=== PATIENT | female | born 2000 ===

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

== ENCOUNTER 2022-01-27 12:08 | Outpatient (REF) | payer OTHER, SELFPAY ==
[2022-01-28 10:26] LABS: BV Int Neg Control Negative (Negative); BV Int Pos Control Positive (Positive)
== END 2022-01-27 12:09 | disposition home or self-care (01) ==
LOC: HO.LNP 12:08
PROVIDERS: Visit Provider Advanced Practice Midwife
DX: R10.2 Pelvic and perineal pain (principal); N76.0 Acute vaginitis
CPT/HCPCS: 87480; 87510; 87660; 99212

== ENCOUNTER → 2022-02-22 10:56 | Outpatient (BNVA) | payer OTHER, SELFPAY | PROVIDERS: PCP Pediatrics; Visit Provider Advanced Practice Midwife | DX: Z30.42 Encounter for surveillance of injectable contraceptive (principal) | CPT/HCPCS: 96372; 99211 ==

== ENCOUNTER 2022-05-06 11:33 | Outpatient (REF) | payer OTHER, SELFPAY ==
[2022-05-07 11:04] LABS: CT PCR NOT DETECTED (Not Detect.); NG PCR NOT DETECTED (Not Detect.)
[2022-05-07 11:23] LABS: BV Int Neg Control Negative (Negative); BV Int Pos Control Positive (Positive)
== END 2022-05-06 11:34 | disposition home or self-care (01) ==
LOC: HO.LNP 11:33
PROVIDERS: PCP Hospitalist; Visit Provider Advanced Practice Midwife
DX: Z11.3 Encounter for screening for infections with a predominantly sexual mode of transmission (principal); N89.8 Other specified noninflammatory disorders of vagina
CPT/HCPCS: 0353U; 87480; 87510; 87660

== ENCOUNTER → 2022-05-16 12:50 | Outpatient (BNVA) | payer OTHER, SELFPAY | PROVIDERS: PCP Hospitalist; Visit Provider Advanced Practice Midwife | DX: Z30.42 Encounter for surveillance of injectable contraceptive (principal) | CPT/HCPCS: 96372; 99211 ==

== ENCOUNTER → 2022-08-15 13:46 | Outpatient (BNVA) | payer OTHER, SELFPAY | PROVIDERS: PCP Hospitalist; Visit Provider Advanced Practice Midwife | DX: Z30.42 Encounter for surveillance of injectable contraceptive (principal) | CPT/HCPCS: 96372; 99211 ==

== ENCOUNTER 2022-11-03 10:55 | Outpatient (AMB) | payer OTHER, SELFPAY ==
[2022-11-03 11:25] VITALS: BMI 24.1
--- NOTE | 2022-11-03 11:25 | AM.OFFVISNUR ---
Intake Vital Signs 11/03/22 11:25 Height 5 ft 3 in Weight 61.745 kg BMI 24.1 Intake Visit Reasons: DEPO Allergies amoxicillin Allergy (Unknown, Uncoded 05/06/22 11:52) hives Nursing Note Alessandra is here today for her scheduled Depo-Provera inj. She gets spotting when her next Depo-Provera shot is due. Return in 12 wks for next inj. Office Procedures Depo Questionnaire If YES to any of the following questions, please consult a provider. Date of last injection: 08/15/22 Date of last menstrual period: 10/24/22 Date of last gynecology exam: 05/06/22 Menstrual pattern since last injection has been: Light Irregular bleeding?: No Breast lumps or other breast changes?: No Changes in weight or appetite?: No Depression or changes in mood?: No Abnormal hair growth or loss?: No Skin problems (rash, acne, discoloration)?: No Pain at the injection site?: No Headaches?: No Nervousness?: No Abdominal pain or cramping?: No Dizziness or nausea?: No Fatigue or weakness?: No Decrease in sexual drive?: No Chest pain or shortness of breath?: No Swelling in arms or legs?: No Form completed by?: Bari catalan LPN Office Meds Depo-Provera Performing Provider: Kiara Rosado CNM Administered by: Liat Catalan LPN on 11/03/22 11:26 Dose Route Admin Location Lot Number Expiration Date NDC Cad Detailer 150 mg IM left deltoid [id number] 01/21/25 80663-668-75 [facility] Coding Level of Care Code Established Pt Est Pt Level 1 (84610) Patient Type Established History Problem Focused Exam Problem Focused Medical Decision Making Straight Forward Diagnoses Time Spent (min) 15 Assessment & Plan Assessment & Plan Orders: Orders AMB Medroxyprogesterone Injection Patient Supplied Today Z30.42 - Encounter for surveillance of injectable contraceptive
== END 2022-11-03 13:59 | disposition home or self-care (01) ==
LOC: HO.HWS 10:55
PROVIDERS: PCP Hospitalist; Visit Provider Advanced Practice Midwife
DX: Z30.42 Encounter for surveillance of injectable contraceptive (principal)
CPT/HCPCS: J1050

== ENCOUNTER → 2022-11-03 10:55 | Outpatient (BNVA) | payer OTHER, SELFPAY | PROVIDERS: PCP Hospitalist; Visit Provider Advanced Practice Midwife | DX: Z30.42 Encounter for surveillance of injectable contraceptive (principal) | CPT/HCPCS: 96372; 99211 ==

== ENCOUNTER 2022-11-23 12:53 | Outpatient (AMB) | payer OTHER, SELFPAY ==
--- NOTE | 2022-11-23 12:54 | A.OFFPC_ITS ---
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 Development Consultant Required: No Accompanied by: Self / Same As Patient Allergies amoxicillin Allergy (Unknown, Uncoded 11/23/22 13:25) hives Medication List - Last Reconciled 11/23/22 by Ashley Leal CNP albuterol sulfate 90 mcg/actuation 2 puffs inhalation Q4-6H PRN cetirizine (All Day Allergy (cetirizine)) 10 mg PO DAILY fluticasone propionate 50 mcg/actuation (Flonase Allergy Relief) 1 spray intranasal DAILY PRN ibuprofen 600 mg PO Q8H PRN medroxyprogesterone (Depo-Provera) 150 mg IM Q12W polyethylene glycol 3350 (Miralax) 17 grams PO DAILY Tobacco use date assessed: 11/23/22 Dental Screening Dental Screen Date: 11/23/22 Did you have a dental visit in the last 12 months?: Yes Did you have a dental problem in the last 6 months where you did not have access to dental care?: No Was dental information given to patient?: Patient has dentist HPI HPI Comments History of Present Illness Details 22-year-old female presents to [facility]. She notes the last time she was evaluated by a PCP and had blood work was a year ago. She reports h/o exercise induced asthma She notes that she gets anxious but not depressed. She has never been formally been diagnosed with anxiety or depression. No acute symptoms today. [facility] Medical History Allergic rhinitis Asthma, mild intermittent History of migraine headaches Family History Mother No problems noted. 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 1. Little interest or pleasure in doing things: nearly every day 2. Feeling down, depressed, or hopeless: not at all 3. Trouble falling or staying asleep, or sleeping too much: nearly every day 4. Feeling tired or having little energy: not at all 5. Poor appetite or overeating: nearly every day 6. Feeling bad about yourself - or that you are a failure or have let yourself or your family down: not at all 7. Trouble concentrating on things, such as reading the newspaper or watching television: not at all 8. Moving or speaking so slowly that other people could have noticed. Or the opposite - being so fidgety or restless that you have been moving around a lot more than usual: nearly every day 9. Thoughts that you would be better off or of hurting yourself in some way: not at all Total score: 12 Depression Screening Interpretation: Positive Depression Screening Follow-up: Existing condition and New Medication prescribed 34343 - PHQ-9 Billing: Yes Source: Developed by Drs. Martin Vu, Renae Mc, Cesar Yang and colleagues, with an educational miriam from [email or web address]. Thrive Questionnaire Date Thrive assessed: 11/23/22 I am a: Patient What is your living situation today?: I have a steady place to live Within the past 12 months, did the food you bought not last and you didn't have the money to get more?: Never true Within the past 12 months, did you worry whether your food would run out before you got money to buy more?: Never true Do you have trouble paying for medicines?: No Do you have trouble getting transportation to medical appointments?: No Do you have trouble paying your heating and electricity bill?: No Do you have trouble taking care of your child, family member or friend?: No Do you have trouble with day-to-day activities such as bathing, preparing meals, shopping, managing finances, etc.?: No Are you currently unemployed and looking for a job?: No Are you interested in more education?: No Please select the resources that you would like help with: None Currently or been in a relationship where the following occur: no concerns reported AUDIT C Alcohol Use Questionnaire (AUDIT-C) 1. How often do you have a drink containing alcohol?: Monthly or less 2. How many drinks containing alcohol do you have on a typical day when you are drinking?: 1 or 2 3. How often do you have six or more drinks on one occasion?: Less than monthly Total Score: 2 IVONNE-7 AMB Questionnaire IVONNE-7 Date IVONNE - 7 assessed: 11/23/22 Feeling nervous, anxious, or on edge: 0 = Not at all Not being able to stop or control worryin = Not at all Worrying too much about different things: 0 = Not at all Trouble relaxin = Not at all Being so restless that it is hard to sit still: 3 = Nearly every day Becoming easily annoyed or irritable: 3 = Nearly every day Feeling afraid as if something awful might happen: 0 = Not at all Total IVONNE-7 score (0-4 normal; 5-9 mild; 10-14 moderate; 15-21 severe): 6 Source: Developed by Drs. Martin Vu, Renae Mc, Cesar Yang and colleagues, with an educational miriam from [employer]. IVONNE-7 Assessment Billing IVONNE-7 Assessment Tool: IVONNE-7 Assessment 59186 ACT Questionnaire In the past 4 weeks, how much of the time did your asthma keep you from getting as much done at work, school or at home?: Some of the time During the past 4 weeks, how often have you had shortness of breath?: More than once a day During the past 4 weeks, how often did your asthma symptoms wake you up at night or earlier than usual in the morning?: Once or twice per week During the past 4 weeks, how often have you had to use your rescue inhaler or ne bulizer medication?: 1-2 times a week How would you rate your asthma control during the past 4 weeks?: Somewhat controlled Score: 13 Review of Systems Const Details: Const Denies chills, Denies fatigue, Denies fever(s), Denies headache(s) and Denies weakness ENT Denies dizziness and Denies headache(s) Card Denies chest pain, Denies lightheadedness, Denies dyspnea and Denies other (Palpitations) Resp Denies cough, Denies dyspnea, Denies wheezing and Denies other ( shortness of breath) GI Denies abdominal pain, Denies melena, Denies hematochezia, Denies change in bowel habits, Denies dyspepsia and Denies nausea Denies hematuria and Denies dysuria Musc Denies abnormal gait, Denies myalgias, Denies arthralgias, Denies numbness and Denies tingling Skin/Breast Denies rash, Denies unusual bruising and Denies wounds Neuro Denies abnormal gait, Denies dizziness, Denies headache(s), Denies memory loss, Denies numbness, Denies Sensory deficit (Neuro), Denies tingling and Denies weakness Psych Reports anxiety and Reports depression, Denies memory loss Endo Denies fatigue Aller/Immun Denies wheezing Physical exam (Primary Care) Vital Signs: Last Vital Signs Pulse 73 11/23/22 12:56 BP 110/70 11/23/22 12:56 Pulse Ox 99 11/23/22 12:56 BMI result Body Mass Index 24.1 Tobacco/Smoking Status: Tobacco use Status Tobacco use date assessed 11/23/22 11/23/22 12:56 Patient Tobacco Use Status Never used Tobacco 11/23/22 13:05 e-Cigarette/Vaping Use Never Used 11/23/22 13:05 PHQ-9: PHQ-9 Score PHQ-9: Total score 12 11/23/22 13:34 Depression Screening Interpretation: Positive Depression Screening Follow-up: Existing condition and New Medication prescribed Thrive Assessment: Date of Thrive Assessment Date Thrive assessed 11/23/22 11/23/22 13:05 Currently or been in a relationship where the following occur: no concerns reported Const Other: General: no acute distress and well developed Nutritional Appearance: well nourished Orientation/consciousness: patient oriented x3 HENMT Head: Yes normocephalic and Yes atraumatic Eyes General: appearance normal, both eyes and all related structures Pupils: Equal, round and reactive pupils present EOM: EOMs intact bilaterally Resp Effort & Inspection: normal respiratory effort Auscultation: clear to auscultation bilaterally Cardio Rate: regular rate Rhythm: regular rhythm Heart sounds: S1 normal heart sound present, S2 normal heart sound present, no gallops, no murmurs and no rubs GI Palpation (GI): No Abdominal aortic bruit present, Soft to palpation, nontender, No hepatosplenomegaly present and No Rebound tenderness present Auscultation: normal bowel sounds General: Yes no CVA tenderness Back/Spine/Pelvis Back: no CVA tenderness Cervical Spine: cervical ROM normal and No Cervical spine tenderness Thoracic/Lumbar Spine: thoraco-lumbar ROM normal, No pain with thoraco-lumbar ROM, No thoracic spinal tenderness and No lumbar spinal tenderness Extrem General: Yes normal to inspection, No edema and No calf tenderness Skin General: warm and dry. Normal skin color. Normal skin turgor Lesions: no lesions Rashes: no rashes Trauma: no lacerations or abrasions Wounds: no wounds Nails: normal Neuro General: patient oriented x3, gait normal and CN's II-XI intact bilaterally Cranial nerves: Yes Equal, round and reactive pupils present Cognition (Neuro): normal cognition Gait exam (Neuro): Normal gait present Motor exam (neuro): 5/5 motor strength present throughout Sensory Exam: No Sensory deficit (Neuro) Psych Appearance: grossly normal Affect: normal affect Attitude: cooperative Thought process: Normal thought process present Assessment and Plan Assessment & Plan (1) Anxiety and depression: Code(s): F41.9 - Anxiety disorder, unspecified; F32.A - Depression, unspecified Plan: PHQ-9 and IVONNE-7 scores revealed moderate depression and mild anxiety respectively Sertraline ordered. Take as prescribed Routine exercise encouraged Follow-up in 1 month or return sooner with worsening or new symptoms Verbalized understanding and agreed with treatment plan. (2) Laboratory tests ordered as part of a complete physical exam (CPE): Code(s): Z00.00 - Encounter for general adult medical examination without abnormal findings Plan: Fasting labs ordered as part of a complete physical exam. Advised to fast for at least 10 hours before getting labs drawn. May drink water Verbalized understanding and agreed with treatment plan. Orders: Orders Comprehensive Malcolm. Panel Fast Today Z00.00 - Encounter for general adult medical examination without abnormal findings Lipid Panel Today Z00.00 - Encounter for general adult medical examination without abnormal findings TSH reflex Free T4 Today Z00.00 - Encounter for general adult medical examination without abnormal findings Complete Blood Count Auto Diff Today Z00.00 - Encounter for general adult medical examination without abnormal findings UA CC w/rflx Micro + Cult Today Z00.00 - Encounter for general adult medical examination without abnormal findings Medications: New sertraline 25 mg PO DAILY 30 days 30 tabs 3RF Coding Level of Care Code New Pt Level 3 (42868) Diagnoses Anxiety and depression F41.9; F32.A Laboratory tests ordered as part of a complete physical exam (CPE) Z00.00 Additional Codes IVONNE-7 Assessment Billing - IVONNE-7 Assessment Tool: IVONNE-7 Assessment 85808 ([id number])
[2022-11-23 12:56] VITALS: BP 110/70; PULSE 73; O2SAT 99; BMI 24.1
== END 2022-11-23 13:46 | disposition home or self-care (01) ==
PROVIDERS: PCP Hospitalist; Visit Provider Nurse Practitioner Family
DX: Z00.00 Encounter for general adult medical examination without abnormal findings (principal); F41.9 Anxiety disorder, unspecified; F32.A Depression, unspecified
CPT/HCPCS: 96127; 99385

== ENCOUNTER 2023-01-05 10:26 | Outpatient (REF) | payer OTHER, SELFPAY ==
[2023-01-05 10:44] LABS: MANUAL DIFF FLAG NO
[2023-01-05 11:26] LABS: Basophils Percent Auto 0.3 % (0-2); Eosinophils Percent Auto 0.2 % (0-4); Hematocrit 44.4 % (37.0-47.0); Hemoglobin 14.5 g/dl (12.0-16.0); Lymphocytes Absolute Auto 1.8 X10*3/uL (1.2-4.9); Lymphocytes Percent Auto 18.3 % (20-40); Mean Corpuscular HGB Conc 32.7 g/dl (31.0-35.0); Mean Corpuscular Hemoglobin 28.8 pg (27.0-33.0); Mean Corpuscular Volume 88.1 fL (80.0-98.0); Mean Platelet Volume 11.7 fL (9.4-12.3); Monocytes Percent Auto 9.9 % (2-11); Neutrophils Absolute Auto 6.7 x10*3/uL (2.0-8.3); Neutrophils Percent Auto 70.3 % (45-73); Platelet Count 204 X10*3/uL (160-400); Red Blood Count 5.04 X10*6/uL (4.20-5.50); Red Cell Distribution Width 12.5 % (11.0-16.0); White Blood Count 9.6 X10*3/uL (4.8-10.8)
[2023-01-05 11:47] LABS: Alanine Aminotransferase 12 U/L (0-31); Albumin Level 4.6 g/dL (3.5-5.0); Alkaline Phosphatase 82 U/L (39-117); Anion Gap 13 (12-20); Aspartate Amino Transferase 17 U/L (5-31); Bilirubin Total 0.5 mg/dL (0.0-1.0); Blood Urea Nitrogen 6 mg/dL (9-16); Calcium 9.7 mg/dL (8.4-10.2); Carbon Dioxide 22 mmol/L (22-29); Chloride 106 mmol/L (96-108); Cholesterol 132 mg/dL (<200); Estimated Glomerular Filt Rate > 60; Glucose Fasting 88 mg/dL (60-99); HDL Cholesterol 37 mg/dL (>40); LDL Cholesterol Calculated 85 mg/dL (<100); Sodium 137 mmol/L (135-145); Total Protein 8.3 g/dL (6.5-8.0); Triglycerides 53 mg/dL (<150)
[2023-01-05 12:03] LABS: Thyroid Stimulating Hormone 0.65 uIU/mL (0.32-4.0)
[2023-01-05 12:04] LABS: TSH reflex Free T4 0.66 uIU/mL (0.32-4.0)
[2023-01-05 13:39] LABS: Appearance Urine Clear; Color Urine Yellow; Glucose Urine UA Negative (Negative); Leukocyte Esterase Urine Trace (Negative); Nitrite Urine Negative (Negative); UMIC TRIGGER UACC YES; Urine Blood Negative (Negative); Urine Ketones Negative (Negative); Urine Protein Negative (Neg-Trace)
[2023-01-05 13:49] LABS: Bacteria Urine None Seen (None Seen); Hyaline Casts Urine 0-2 /LPF (0-2); RBC Urine 0-2 /HPF (0-2); Squamous Epithelial Cell Urine 0-2 /HPF (0-2); WBC Urine 0-5 /HPF (0-5)
[2023-01-06 09:26] LABS: HBc Num1 0.14 S/CO (0.00-0.79); HIV AB/AG Nonreactive (Nonreactive); HIV Num 1 0.05 S/CO (0.00-0.99); Hepatitis B Core Antibody Nonreactive (Nonreactive); ~HepC Num1 0.06 S/CO (0.00-0.79); ~Hepatitis C Antibody Nonreactive (Nonreactive)
== END 2023-01-05 10:27 | disposition home or self-care (01) ==
LOC: HO.LAB 10:26
PROVIDERS: Advanced Practice Midwife; Visit Provider Nurse Practitioner Family
DX: Z00.00 Encounter for general adult medical examination without abnormal findings (principal); Z11.4 Encounter for screening for human immunodeficiency virus [HIV]; Z20.2 Contact with and (suspected) exposure to infections with a predominantly sexual mode of transmission; N92.1 Excessive and frequent menstruation with irregular cycle
CPT/HCPCS: 36415; 80053; 80061; 81001; 84443; 85025; 86704; 86803; 87389

== ENCOUNTER 2023-01-26 08:42 | Outpatient (AMB) | payer OTHER, SELFPAY ==
--- NOTE | 2023-01-26 09:08 | AM.OFFVISNUR ---
Intake Vital Signs 01/26/23 09:09 Height 5 ft 3 in Weight 59.477 kg BMI 23.2 Intake Visit Reasons: DEPO Allergies amoxicillin Allergy (Unknown, Uncoded 11/23/22 13:25) hives Nursing Note Alessandra is here today for her scheduled Depo_provera Inj. She is c/o weight loss and decreased appetitie. She denies any anxiety or depression. She denies any new situations that would make her not want to eat. Pt was able to get appt with her PCP today. She also c/o dizziness and they are doing labs to check for anemia. Pt was informed if all her tests are neg to make appt to discuss possible weight loss from Depo_provera. Pt due for next AG in May 17. Pt verbs understanding. Office Procedures Depo Questionnaire If YES to any of the following questions, please consult a provider. Date of last injection: 11/03/22 Date of last menstrual period: 01/24/23 Date of last gynecology exam: 04/26/22 Menstrual pattern since last injection has been: Light Irregular bleeding?: No Breast lumps or other breast changes?: No Changes in weight or appetite?: Yes (weight loss unintentional) Depression or changes in mood?: No Abnormal hair growth or loss?: No Skin problems (rash, acne, discoloration)?: No Pain at the injection site?: No Headaches?: Yes (occ) Nervousness?: No Abdominal pain or cramping?: No Dizziness or nausea?: No Fatigue or weakness?: No Decrease in sexual drive?: No Chest pain or shortness of breath?: No Swelling in arms or legs?: No Form completed by?: Bari Stafford LPN Office Meds Depo-Provera 150 mg/mL intramuscular syringe Performing Provider: Kiara Rosado CNM Performing Location: [facility] [place] [facility] Administered by: Liat Stafford LPN on 01/26/23 09:09 Dose Route Admin Location Dispensed Lot Number Expiration Date [facility] Extrusion Die Coordinator 150 mg IM rt. deltoid 1 mL [id number] 02/21/25 72233-501-61 [facility] Coding Level of Care Code Established Pt Est Pt Level 1 (89831) Patient Type Established History Problem Focused Exam Problem Focused Medical Decision Making Straight Forward Time Spent (min) 20 Assessment & Plan Assessment & Plan Orders: Orders AMB Medroxyprogesterone Injection Patient Supplied Today Z30.42 - Encounter for surveillance of injectable contraceptive
[2023-01-26 09:09] VITALS: BMI 23.2
== END 2023-01-26 09:07 | disposition home or self-care (01) ==
PROVIDERS: PCP Hospitalist; Visit Provider Advanced Practice Midwife
DX: Z30.42 Encounter for surveillance of injectable contraceptive (principal)

== ENCOUNTER → 2023-01-26 08:42 | Outpatient (BNVA) | payer OTHER, SELFPAY | PROVIDERS: PCP Hospitalist; Visit Provider Advanced Practice Midwife | DX: Z30.42 Encounter for surveillance of injectable contraceptive (principal) | CPT/HCPCS: 96372; 99211; J1050 ==

== ENCOUNTER 2023-01-31 10:37 | Outpatient (REF) | payer OTHER, SELFPAY | END 2023-01-31 10:38 | disposition home or self-care (01) | LOC: HO.LNP 10:37 | PROVIDERS: PCP Hospitalist; Visit Provider Advanced Practice Midwife | DX: Z12.4 Encounter for screening for malignant neoplasm of cervix (principal); Z11.3 Encounter for screening for infections with a predominantly sexual mode of transmission; N89.8 Other specified noninflammatory disorders of vagina | CPT/HCPCS: 0353U; 87480; 87510; 87660; 88142; 99212 ==

== ENCOUNTER 2023-01-31 10:37 | Outpatient (AMB) | payer OTHER, SELFPAY ==
--- NOTE | 2023-01-31 10:55 | MHC.OFFVIS ---
Intake Vital Signs 01/31/23 10:56 Height 5 ft 3 in Weight 129 lb BMI 22.8 BP 118/70 Intake Visit Reasons: ? infection Intake Note: itching, burning and having discharge (white and yellowish) and having odor Editorial Assistant Required: No Information Interpreted: non-clinical & clinical Refinery Operator Assistant: Refinery Operator Assistant Present (Juliana) Allergies amoxicillin Allergy (Unknown, Uncoded 01/31/23 10:59) hives Medication List - Last Reconciled 01/31/23 by Kiara Rosado CNM albuterol sulfate 90 mcg/actuation 2 puffs inhalation Q4-6H PRN cetirizine (All Day Allergy (cetirizine)) 10 mg PO DAILY fluticasone propionate 50 mcg/actuation (Flonase Allergy Relief) 1 spray intranasal DAILY PRN ibuprofen 600 mg PO Q8H PRN medroxyprogesterone (Depo-Provera) 150 mg IM Q12W polyethylene glycol 3350 (Miralax) 17 grams PO DAILY sertraline 25 mg PO DAILY 30 days Is last menstrual period known: No (Depo) Post menopausal: No HPI ? infection HPI Details Patient is here because she has had a discharge that keeps coming back that is bothering her it occasionally smells really bad it was yellow. She use boric acid and it already is better she keeps wondering why it keeps coming back she is sexually active she says with the 1 partner and she has never use condoms. She is on Depo-Provera which she likes. She said somebody told her that she was losing weight but she said her doctor told her she was okay and she feels okay. She also says somebody told her that she had anxiety and depression but she does not feel like she does she feels fine. She has never had a Pap smear she turned 23 a few weeks ago. She says she has never had any vaccines because her mother did not have either her or her siblings have vaccines. She came to [facility] for pediatric care. 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 She had her last Depo January 26 and her next 1 is due April 20. [facility] Medical History History of migraine headaches Asthma, mild intermittent Allergic rhinitis Family History Mother No problems noted. 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 Cervix small pink round nulliparous. Bimanual deferred. External Female Exam: normal external appearance and normal appearance of the urethra Speculum Exam - Vagina: normal appearance of the vagina and normal vaginal discharge Speculum Exam - Cervix: normal appearance of the cervix and Cervical os closed Assessment & Plan Assessment & Plan (1) Problematic vaginal discharge: Comment: Described as smelly an yellowish. But used boric acid 3 days ago and appears within normal limits today. Await testing. Code(s): N89.8 - Other specified noninflammatory disorders of vagina (2) Cervical cancer screening: Comment: Did not receive any vaccines as a child information about Gardasil 9 HPV vaccination given and explained. To schedule if desires 1st Pap done 01/31/2023 Code(s): Z12.4 - Encounter for screening for malignant neoplasm of cervix (3) Depo-Provera contraceptive status: Comment: Last dose 01/26/2023 next dose 04/20/23 Code(s): Z30.42 - Encounter for surveillance of injectable contraceptive Plan Reviewed the benefits of using condoms especially if she continually has recurrent abnormal discharge that is bothersome enough for her to desire treatment. Also discussed the benefits of vaccination and the HPV virus and prevention as well as well as vaccination info about the HPV vaccine given and she will look into it and consider her mother did not have her or her siblings have vaccinations when they were young, so discussed that now it is her opportunity and decision to either choose or not choose vaccinations but also to act accordingly if she is around susceptible individuals and believes she has acquired any illness. I did her 1st Pap and we did testing for gonorrhea chlamydia trichomoniasis Gardnerella and yeast today the discharge appears scant and clear and normal so it is possible that nothing will be found because of the bacterial vaginosis treatment she used with boric acid. We will await results Also discussed that she had noted concern about weight loss at her last visit but she actually feels well and says that while somebody told her that she had anxiety and depression she does not feel anxious or depressed. Discussed that she is actually right in the middle of the normal weight range for her height and if she feels well that there is no need for her to gain weight to meet anyone else's expectations and discussed norms and issues around weight perception she will have her complete annual in April she may schedule HPV vaccine if it is covered by her insurance here otherwise she could seek it out at a pharmacy. Did recommend condom use Orders: Orders Bacterial Vaginosis Panel Today N89.8 - Other specified noninflammatory disorders of vagina CT NG by PCR Today N89.8 - Other specified noninflammatory disorders of vagina Pap Smear Today Z12.4 - Encounter for screening for malignant neoplasm of cervix Patient Instructions: Coding Level of Care Code Est Pt Level 3 (84707) Diagnoses Problematic vaginal discharge N89.8 Cervical cancer screening Z12.4 Depo-Provera contraceptive status Z30.42
[2023-01-31 10:56] VITALS: BP 118/70; BMI 22.8
== END 2023-01-31 11:35 | disposition home or self-care (01) ==
PROVIDERS: PCP Hospitalist; Visit Provider Advanced Practice Midwife
DX: N89.8 Other specified noninflammatory disorders of vagina (principal); Z30.42 Encounter for surveillance of injectable contraceptive
CPT/HCPCS: 99213

== ENCOUNTER 2023-04-03 15:49 | Outpatient (AMB) | payer OTHER, SELFPAY ==
[2023-04-03 15:55] VITALS: BP 106/70; PULSE 108; RESP 13; TEMP 36.5; O2SAT 99; BMI 22.2
--- NOTE | 2023-04-03 15:55 | MHC.PC.OV ---
Vital Signs 04/03/23 15:55 Height 5 ft 3 in Weight 125 lb 2 oz BMI 22.2 BP 106/70 Blood Pressure Location Rt brachial Position Sitting Respiration 13 Pulse 108 H Pulse Source Pulse Oximeter Temp 97.7 F Temp Source Temporal Artery Scan Pulse Oximetry (%) 99 Oxygen Delivery Method Room Air Intake Visit Reasons: medical clearance daycare Intake Note: Patient would like her iron levels checked if possible. 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 Accompanied by: Self / Same As Patient Allergies amoxicillin Allergy (Unknown, Uncoded 04/03/23 16:07) hives Medication List - Last Reconciled 04/03/23 by Ashley Leal CNP albuterol sulfate 90 mcg/actuation 2 puffs inhalation Q4-6H PRN cetirizine (All Day Allergy (cetirizine)) 10 mg PO DAILY fluticasone propionate 50 mcg/actuation (Flonase Allergy Relief) 1 spray intranasal DAILY PRN ibuprofen 600 mg PO Q8H PRN medroxyprogesterone (Depo-Provera) 150 mg IM Q12W polyethylene glycol 3350 (Miralax) 17 grams PO DAILY sertraline 25 mg PO DAILY 30 days Tobacco use date assessed: 11/23/22 Dental Screening Dental Screen Date: 04/03/23 Did you have a dental visit in the last 12 months?: Yes Did you have a dental problem in the last 6 months where you did not have access to dental care?: No Was dental information given to patient?: Patient has dentist HPI HPI Comments History of Present Illness Details 23-year-old female presents for medical clearance for daycare. 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 She drinks alcohol socially, once or twice monthly, no drugs She states that she is sexually active, in a polygamous relationship, and has no concerns for STD Her last pap smear was in 01/2023: normal [facility] Medical History (Updated 04/03/23 @ 16:20 by Ashley Leal CNP) History of migraine headaches Asthma, mild intermittent Allergic rhinitis Surgical History (Updated 04/03/23 @ 16:05 by Mikaela Smith MA) No pertinent past surgical history Family History Mother No problems noted. Social History Household Members: Family Housing: House Alcohol intake: current Alcohol intake frequency: a few times a month Alcohol type: other Patient Tobacco Use Status: Never used Tobacco e-Cigarette/Vaping Use: Never Used Substance Use Type: Marijuana service: No Current occupational status: employed Current occupation: [employer] Current occupational exposures/hazards: No Sexual orientation: Straight/Heterosexual Gender identity: Female Cognitive needs: No Hearing needs: No Vision needs: No Female Reproductive History Menstrual Age of Menarche: 14 Questionnaire PHQ-9 Over the last 2 weeks, how often have you been bothered by any of the following problems? 1. Little interest or pleasure in doing things: several days 2. Feeling down, depressed, or hopeless: not at all 3. Trouble falling or staying asleep, or sleeping too much: more than half the days 4. Feeling tired or having little energy: not at all 5. Poor appetite or overeating: nearly every day 6. Feeling bad about yourself - or that you are a failure or have let yourself or your family down: not at all 7. Trouble concentrating on things, such as reading the newspaper or watching television: not at all 8. Moving or speaking so slowly that other people could have noticed. Or the opposite - being so fidgety or restless that you have been moving around a lot more than usual: not at all 9. Thoughts that you would be better off or of hurting yourself in some way: not at all Total score: 6 Depression Screening Interpretation: Positive Depression Screening Follow-up: Existing condition and In treatment Depression Screening Done: Yes 22417 - PHQ-9 Billing: Yes Source: Developed by Drs. Martin Vu, Renae Mc, Cesar Yang and colleagues, with an educational miriam from [employer]. Thrive Questionnaire Date Thrive assessed: 11/23/22 IVONNE-7 AMB Questionnaire IVONNE-7 Date IVONNE - 7 assessed: 11/23/22 Feeling nervous, anxious, or on edge: 0 = Not at all Not being able to stop or control worryin = Several days Worrying too much about different things: 0 = Not at all Trouble relaxin = Nearly every day Being so restless that it is hard to sit still: 1 = Several days Becoming easily annoyed or irritable: 0 = Not at all Feeling afraid as if something awful might happen: 0 = Not at all Total IVONNE-7 score (0-4 normal; 5-9 mild; 10-14 moderate; 15-21 severe): 5 Source: Developed by Drs. Martin Vu, Renae Mc, Cesar Yang and colleagues, with an educational miriam from [employer]. IVONNE-7 Assessment Billing IVONNE-7 Assessment Tool: IVONNE-7 Assessment 28782 Review of Systems Const Details: Denies chills, Denies fatigue, Denies fever(s), Denies headache(s) and Denies weakness HEENT Denies change in vision, Denies dizziness, Denies headache(s), Denies hearing loss, Denies nasal congestion, Denies sinus pain, Denies sinus pressure and Denies sore throat Card Denies chest pain, Denies lightheadedness, Denies dyspnea and Denies other (palpitations) Resp Denies cough, Denies dyspnea and Denies wheezing GI Denies abdominal pain, Denies melena, Denies hematochezia, Denies change in bowel habits, Denies dyspepsia and Denies nausea Denies hematuria and Denies dysuria Musc Denies abnormal gait, Denies myalgias, Denies arthralgias, Denies numbness and Denies tingling Skin/Breast Denies rash, Denies unusual bruising and Denies wounds Neuro Denies abnormal gait, Denies dizziness, Denies headache(s), Denies memory loss, Denies numbness, Denies Sensory deficit (Neuro), Denies tingling and Denies weakness Psych Denies anxiety, Denies depression and Denies memory loss Endo Denies cold intolerance, Denies fatigue, Denies heat intolerance, Denies polydipsia and Denies polyuria Hardy/Lymph Denies easy bleeding and Denies easy bruising Aller/Immun Denies wheezing Physical exam (Primary Care) Vital Signs: Last Vital Signs Temp 97.7 F 04/03/23 15:55 Pulse 108 H 04/03/23 15:55 Resp 13 04/03/23 15:55 BP 106/70 04/03/23 15:55 Pulse Ox 99 04/03/23 15:55 Oxygen Delivery Method Room Air 04/03/23 15:55 BMI result Body Mass Index 22.2 Tobacco/Smoking Status: Tobacco use Status Tobacco use date assessed 11/23/22 04/03/23 16:05 Patient Tobacco Use Status Never used Tobacco 04/03/23 16:05 e-Cigarette/Vaping Use Never Used 04/03/23 16:05 PHQ-9: PHQ-9 Score PHQ-9: Total score 6 04/03/23 16:23 Depression Screening Interpretation: Positive Depression Screening Follow-up: Existing condition and In treatment Thrive Assessment: Date of Thrive Assessment Date Thrive assessed 11/23/22 04/03/23 16:05 Const Other: General: no acute distress, well developed, alert and awake Nutritional Appearance: well nourished Orientation/consciousness: patient oriented x3 HENMT Head: Yes normocephalic and Yes atraumatic Ears: hearing grossly normal bilaterally and TM's normal bilaterally General nose exam: Normal external nose present and Normal nares present Mouth: Normal oral and palatal mucosa present and moist mucous membranes Teeth and gingiva: dentition normal Throat: Yes oropharynx normal Eyes Pupils: Equal, round and reactive pupils present and Pupil accommodation reflex normal EOM: EOMs intact bilaterally Neck Neck: Yes normal visual inspection, Yes no lymphadenopathy and Yes trachea midline Thyroid: Thyroid normal Carotids: no bruits Lymphatic: no lymphadenopathy noted Chest Chest palpation & inspection: normal inspection of the chest Resp Effort & Inspection: normal respiratory effort Auscultation: clear to auscultation bilaterally Cardio Rate: regular rate Rhythm: regular rhythm Heart sounds: S1 normal heart sound present, S2 normal heart sound present, no gallops, no murmurs and no rubs Bruits: no abdominal aortic bruits and no carotid bruits GI Palpation (GI): No Abdominal aortic bruit present, Soft to palpation, nontender, No hepatosplenomegaly present and No Rebound tenderness present Auscultation: normal bowel sounds General: Yes no CVA tenderness Back/Spine/Pelvis Back: no CVA tenderness Cervical Spine: cervical ROM normal and No Cervical spine tenderness Thoracic/Lumbar Spine: thoraco-lumbar ROM normal, No pain with thoraco-lumbar ROM, No thoracic spinal tenderness and No lumbar spinal tenderness Skin General: warm and dry. Normal skin color. Normal skin turgor Lesions: no lesions Rashes: no rashes Trauma: no lacerations or abrasions Wounds: no wounds Nails: normal Neuro General: patient oriented x3, gait normal and CN's II-XI intact bilaterally Cranial nerves: Yes Equal, round and reactive pupils present Cognition (Neuro): normal cognition Gait exam (Neuro): Normal gait present Motor exam (neuro): 5/5 motor strength present throughout Sensory Exam: No Sensory deficit (Neuro) Deep tendon reflexes (DTR's): Right patellar reflex intensity grade: 2+ and Left patellar reflex intensity grade: 2+ Extrem General: Yes normal to inspection, No edema and No calf tenderness Psych Appearance: grossly normal Affect: normal affect Attitude: cooperative Thought process: Normal thought process present Assessment and Plan Assessment & Plan (1) Normal physical examination, routine: Code(s): Z00.00 - Encounter for general adult medical examination without abnormal findings Plan: No significant physical restrictions or limitations noted Continue current treatment regimen 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 for child 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 Advised to follow-up in 2 months for anxiety and depression Return sooner with worsening or new symptoms Verbalized understanding and agreed with treatment plan (2) Anxiety and depression: Code(s): F41.9 - Anxiety disorder, unspecified; F32.A - Depression, unspecified Plan: IVONNE-7 in PHQ-9 scores revealed mild anxiety and depression Continue to take sertraline as prescribed Routine exercise encouraged Follow-up in 3 months or return sooner with worsening or new symptoms Verbalized understanding and agreed with treatment plan Coding Level of Care Code Est Pt Level 3 (95157) Est Pt Prev Care 18-39y(55010) Diagnoses Normal physical examination, routine Z00.00 Anxiety and depression F41.9; F32.A Additional Codes IVONNE-7 Assessment Billing - IVONNE-7 Assessment Tool: IVONNE-7 Assessment 61830 ([id number])
== END 2023-04-03 16:55 | disposition home or self-care (01) ==
PROVIDERS: PCP Hospitalist; Visit Provider Nurse Practitioner Family
DX: Z00.00 Encounter for general adult medical examination without abnormal findings (principal); F41.9 Anxiety disorder, unspecified; F32.A Depression, unspecified
CPT/HCPCS: 96127; 99213; 99395

== ENCOUNTER 2023-04-20 12:35 | Outpatient (AMB) | payer OTHER, SELFPAY ==
[2023-04-20 13:16] VITALS: BMI 22.2
--- NOTE | 2023-04-20 13:16 | AM.OFFVISNUR ---
Intake Vital Signs 04/20/23 13:16 Height 5 ft 3 in Weight 56.812 kg BMI 22.2 Intake Visit Reasons: DEPO Allergies amoxicillin Allergy (Unknown, Uncoded 04/03/23 16:07) hives Nursing Note Alessandra is here today for her scheduled Depo_Provera inj. She is c/o bleeding about 3 wks prior to her next depo-Inj. She wears a light day pad, but her bleeding is bright red. She denies any pelvic pain or cramping. Pt has upcoming appt on 05/12/23 for her AG. She was advised to discuss with provider at that visit. Pt also c/o odor with her bleeding. She does admit she had rx for Metrogel vaginal but did not complete the treatment. Pt was advised as soon as this bleeding stops she can use the Metrogel that she has left. She also uses Boric acid protocal at times. Reviewed with pt, no soap in vagina, empty her bladder after intimacy, wipe front to back and no douching. Office Procedures Depo Questionnaire If YES to any of the following questions, please consult a provider. Date of last injection: 01/26/23 Date of last menstrual period: 03/30/23 Date of last gynecology exam: 05/12/23 Menstrual pattern since last injection has been: Normal Irregular bleeding?: Yes (starts bleeding about 3 wks prior to shot being due.) Breast lumps or other breast changes?: No Changes in weight or appetite?: No Depression or changes in mood?: No Abnormal hair growth or loss?: No Skin problems (rash, acne, discoloration)?: No Pain at the injection site?: No Headaches?: No Nervousness?: No Abdominal pain or cramping?: No Dizziness or nausea?: No Fatigue or weakness?: No Decrease in sexual drive?: No Chest pain or shortness of breath?: No Swelling in arms or legs?: No Form completed by?: Bari Stafford LPN Office Meds Depo-Provera 150 mg/mL intramuscular syringe Performing Provider: Kiara Rosado CNM Performing Location: [facility] [place] [facility] Administered by: Liat Stafford LPN on 04/20/23 13:16 Dose Route Admin Location Dispensed Lot Number Expiration Date [employer] Virtual[employer] Consultant 150 mg IM left deltoid 1 mL [id number] 05/24/25 [id number] [facility] Coding Level of Care Code Established Pt Est Pt Level 1 (36896) Patient Type Established History Problem Focused Exam Problem Focused Medical Decision Making Low Complexity Time Spent (min) 20 Assessment & Plan Assessment & Plan Orders: Orders AMB Medroxyprogesterone Injection Patient Supplied Today Z30.42 - Encounter for surveillance of injectable contraceptive
== END 2023-04-20 13:14 | disposition home or self-care (01) ==
LOC: HO.HWS 12:35
PROVIDERS: PCP Nurse Practitioner Family; Visit Provider Advanced Practice Midwife
DX: Z30.42 Encounter for surveillance of injectable contraceptive (principal)

== ENCOUNTER → 2023-04-20 12:35 | Outpatient (BNVA) | payer OTHER, SELFPAY | PROVIDERS: PCP Nurse Practitioner Family; Visit Provider Advanced Practice Midwife | DX: Z30.42 Encounter for surveillance of injectable contraceptive (principal) | CPT/HCPCS: 96372; 99211; J1050 ==

== ENCOUNTER 2023-05-12 11:30 | Outpatient (REF) | payer OTHER, SELFPAY ==
[2023-05-13 06:11] LABS: CT PCR NOT DETECTED (Not Detect.); NG PCR NOT DETECTED (Not Detect.)
[2023-05-13 12:49] LABS: BV Int Neg Control Negative (Negative); BV Int Pos Control Positive (Positive)
== END 2023-05-12 11:31 | disposition home or self-care (01) ==
LOC: HO.LNP 11:30
PROVIDERS: PCP Nurse Practitioner Family; Visit Provider Advanced Practice Midwife
DX: N92.1 Excessive and frequent menstruation with irregular cycle (principal); N89.8 Other specified noninflammatory disorders of vagina
CPT/HCPCS: 0353U; 81025; 87480; 87510; 87660; 99212

== ENCOUNTER 2023-05-12 11:30 | Outpatient (AMB) | payer OTHER, SELFPAY ==
--- NOTE | 2023-05-12 11:34 | A.OFFVIS_ITS ---
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 She reports bleeding onset about 3 weeks before the next dose is due this has been a concern also with some vaginal odor changes. She denies any pelvic pain or urinary symptoms. She would like to remain on the Depo-Provera if possible but really does not want to tolerate this amount of bleeding. Last Depo was given 04/20/2024. REPLACED BY [facility] Medical History History of migraine headaches Asthma, mild intermittent Allergic rhinitis Surgical History No pertinent past surgical history Family History Mother No problems noted. Social History Household Members: Family Housing: House Alcohol intake: current Alcohol intake frequency: a few times a month Alcohol type: other Patient Tobacco Use Status: Never used Tobacco e-Cigarette/Vaping Use: Never Used Substance Use Type: Marijuana service: No Current occupational status: employed Current occupation: [employer] Current occupational exposures/hazards: No Sexual orientation: Straight/Heterosexual Gender identity: Female Cognitive needs: No Hearing needs: No Vision needs: No Female Reproductive History Menstrual Age of Menarche: 14 control method: progesterone injection Review of Systems Const All systems reviewed & are unremarkable except as noted in HPI and below Physical Exam Vital Signs: Last Vital Signs BP 112/62 05/12/23 11:46 BMI result Body Mass Index 21.9 Const General: cooperative, healthy appearing and no acute distress Orientation/consciousness: patient oriented x3 GI Inspection: Yes normal to inspection Palpation (GI): Soft to palpation and Other GI palpation findings present (Nontender) Rectal Exam - Female: visual inspection normal General: Yes bladder normal to palpation External Female Exam: normal appearance of the urethra Speculum Exam - Vagina: normal appearance of the vagina, normal palpation and normal vaginal discharge Speculum Exam - Cervix: normal appearance of the cervix and normal palpation Bimanual exam- vagina & uterus: normal bimanual exam, normal palpation, uterine size normal, bladder normal to palpation, normal palpation, uterine shape normal and non-tender Bimanual Exam- Adnexa, other: normal adnexae Neuro General: patient oriented x3 Results AMB Test Urine AMB Test Urine Negative Last Edit by Katarzyna Quezada CMA on 11:48 Results Reviewed Results Reviewed: Laboratory Last Values [facility] Clinic Negative 05/12/23 11:48 Assessment & Plan Assessment & Plan (1) Breakthrough bleeding on Depo-Provera: Code(s): N92.1 - Excessive and frequent menstruation with irregular cycle (2) Vaginal odor: Code(s): N89.8 - Other specified noninflammatory disorders of vagina Plan GC chlamydia and BV panel done today await results for plan of care. Discussed ordering the Depo every 8 weeks so she does not have a decrease in the hormone level creating the hormone changes that are affecting her bleeding. Advised that insurance companies do not always support even though it is medically indicated to suppress menses due to conditions such as dysmenorrhea. She is aware if the insurance company does not pay for it every 8 weeks she is open to other options for her at this time. All of her questions and concerns were addressed to the best of my ability and shared decision making. She is agreeable to the plan of care. Orders: Orders Bacterial Vaginosis Panel Today Z30.42 - Encounter for surveillance of injectable contraceptive AMB HCG Urine Test Today Z32.02 - Encounter for test, result negative CT NG by PCR Today Z30.42 - Encounter for surveillance of injectable contr aceptive Medications: Changed From medroxyprogesterone (Depo-Provera) to start at the beginning of next period, then every 12 weeks 150 mg IM Q12W 1 mL 4RF To medroxyprogesterone (Depo-Provera) medically indicated to give every 8 weeks 150 mg IM .[id number] 1 mL 6RF Coding Level of Care Code Est Pt Level 3 (16886) Diagnoses Breakthrough bleeding on Depo-Provera N92.1 Vaginal odor N89.8
[2023-05-12 11:46] VITALS: BP 112/62; BMI 21.9
== END 2023-05-12 13:40 | disposition home or self-care (01) ==
LOC: HO.HWS 11:30
PROVIDERS: PCP Nurse Practitioner Family; Visit Provider Advanced Practice Midwife
DX: N92.1 Excessive and frequent menstruation with irregular cycle (principal); N89.8 Other specified noninflammatory disorders of vagina; Z32.02 Encounter for pregnancy test, result negative
CPT/HCPCS: 99213

== ENCOUNTER 2023-06-28 12:47 | Outpatient (AMB) | payer OTHER, SELFPAY ==
[2023-06-28 13:18] VITALS: BMI 21.3
--- NOTE | 2023-06-28 13:18 | AM.OFFVISNUR ---
Intake Vital Signs 06/28/23 13:18 Height 5 ft 3 in Weight 54.658 kg BMI 21.3 Intake Visit Reasons: Depo-Provera INJ Allergies amoxicillin Allergy (Unknown, Uncoded 05/12/23 11:47) hives Nursing Note Alessandra is here today for her Depo-Provera inj. She will be getting her injections q 8 wks due to AUB. Pt to call if bleeding persists even after Depo_inj. Pt verbs understanding. Office Procedures Depo Questionnaire If YES to any of the following questions, please consult a provider. Date of last injection: 04/20/23 Date of last menstrual period: 06/19/23 Date of last gynecology exam: 05/06/22 Menstrual pattern since last injection has been: Normal Irregular bleeding?: Yes Breast lumps or other breast changes?: No Changes in weight or appetite?: No Depression or changes in mood?: No Abnormal hair growth or loss?: No Skin problems (rash, acne, discoloration)?: No Pain at the injection site?: No Headaches?: No Nervousness?: No Abdominal pain or cramping?: No Dizziness or nausea?: No Fatigue or weakness?: No Decrease in sexual drive?: No Chest pain or shortness of breath?: No Swelling in arms or legs?: No Form completed by?: Bari Stafford LPN Office Meds Depo-Provera 150 mg/mL intramuscular syringe Performing Provider: Renae Enriquez CNM Performing Location: [facility] Administered by: Liat Stafford LPN on 06/28/23 13:18 Dose Route Admin Location Dispensed Lot Number Expiration Date [facility] Sifting Operator 150 mg IM Lt. deltoid 1 mL [id number] 12/22/24 42683-822-38 [employer] Coding Level of Care Code Established Pt Est Pt Level 1 (69786) Patient Type Established History Problem Focused Exam Problem Focused Medical Decision Making Straight Forward Time Spent (min) 20 Assessment & Plan Assessment & Plan Orders: Orders AMB Medroxyprogesterone Injection Patient Supplied Today Z30.42 - Encounter for surveillance of injectable contraceptive
== END 2023-06-28 13:12 | disposition home or self-care (01) ==
LOC: HO.HWS 12:48
PROVIDERS: PCP Nurse Practitioner Family; Visit Provider Advanced Practice Midwife
DX: Z30.42 Encounter for surveillance of injectable contraceptive (principal)

== ENCOUNTER → 2023-06-28 12:47 | Outpatient (BNVA) | payer OTHER, SELFPAY | PROVIDERS: PCP Nurse Practitioner Family; Visit Provider Advanced Practice Midwife | DX: Z30.42 Encounter for surveillance of injectable contraceptive (principal) | CPT/HCPCS: 96372; 99211; J1050 ==

== ENCOUNTER 2023-07-12 08:06 | Outpatient (REF) | payer OTHER, SELFPAY | END 2023-07-12 08:07 | disposition home or self-care (01) | LOC: HO.LAB 08:06 | PROVIDERS: PCP Nurse Practitioner Family; Visit Provider Advanced Practice Midwife | DX: N76.0 Acute vaginitis (principal) | CPT/HCPCS: 99212 ==

== ENCOUNTER 2023-07-12 08:06 | Outpatient (AMB) | payer OTHER, SELFPAY ==
[2023-07-12 08:32] VITALS: BP 108/66; BMI 21.1
--- NOTE | 2023-07-12 08:32 | MHC.OFFVIS ---
Intake Vital Signs 07/12/23 08:32 Height 5 ft 3 in Weight 119 lb 0.794 oz BMI 21.1 BP 108/66 Intake Visit Reasons: ? infection Allergies amoxicillin Allergy (Unknown, Uncoded 05/12/23 11:47) hives HPI HPI Comments History of Present Illness Details Presenting complaining of vaginal discharge with odor associated with vulvovaginal irritation PFSH Medical History History of migraine headaches Asthma, mild intermittent Allergic rhinitis Surgical History No pertinent past surgical history Family History Mother No problems noted. Social History Household Members: Family Housing: House Alcohol intake: current Alcohol intake frequency: a few times a month Alcohol type: other Patient Tobacco Use Status: Never used Tobacco e-Cigarette/Vaping Use: Never Used Substance Use Type: Marijuana service: No Current occupational status: employed Current occupation: [employer] Current occupational exposures/hazards: No Sexual orientation: Straight/Heterosexual Gender identity: Female Cognitive needs: No Hearing needs: No Vision needs: No Female Reproductive History Menstrual Age of Menarche: 14 Review of Systems Const All systems reviewed & are unremarkable except as noted in HPI and below Physical Exam Vital Signs: Last Vital Signs BP 108/66 07/12/23 08:32 BMI result Body Mass Index 21.1 General: Yes no CVA tenderness External Female Exam: normal external appearance and normal appearance of the urethra Speculum Exam - Vagina: normal appearance of the vagina, normal palpation, no lesions and no masses Speculum Exam - Cervix: normal appearance of the cervix, normal palpation, no lesions, no masses and nontender Bimanual exam- vagina & uterus: normal bimanual exam, normal palpation, uterine size normal, normal palpation, uterine shape normal, No Cervical tenderness present and non-tender Bimanual Exam- Adnexa, other: normal adnexae Back/Spine/Pelvis Back: no CVA tenderness Assessment & Plan Assessment & Plan (1) Vulvovaginitis: Comment: BV +VVC Code(s): N76.0 - Acute vaginitis Plan: GC and chlamydia cultures with BV panel taken. Per CDC recommendation, will screen for STI, HepBs Ag, HIV, RPR, Hep C Ab ordered. Will treat with Terazol 0.8% q.h.s. and Flagyl 500 mg p.o. b.i.d. x 7 days, Instructions given to the patient to refrain from sexual activity or to use condoms consistently and correctly during the BV treatment regimen, not to douch, it might increase the risk for relapse, and to call if symptoms persist or recur. Orders: Orders Syphilis Screen Today B96.89 - Other specified bacterial agents as the cause of diseases classified elsewhere, N76.0 - Acute vaginitis HIV Ab/Ag Today B96.89 - Other specified bacterial agents as the cause of diseases classified elsewhere, N76.0 - Acute vaginitis Hepatitis C Antibody Today B96.89 - Other specified bacterial agents as the cause of diseases classified elsewhere, N76.0 - Acute vaginitis Hepatitis B Surface Antigen Today B96.89 - Other specified bacterial agents as the cause of diseases classified elsewhere, N76.0 - Acute vaginitis Medications: New terconazole 0.8% 1 appful vaginal BEDTIME 20 grams 0RF 3 days Coding Level of Care Code Est Pt Level 3 (99931) Diagnoses Vulvovaginitis N76.0
== END 2023-07-12 08:47 | disposition home or self-care (01) ==
PROVIDERS: PCP Nurse Practitioner Family; Visit Provider Obstetrics & Gynecology
DX: N76.0 Acute vaginitis (principal)
CPT/HCPCS: 99213

== ENCOUNTER 2023-07-12 09:04 | Outpatient (REF) | payer OTHER, SELFPAY ==
[2023-07-12 15:03] LABS: CT PCR NOT DETECTED (Not Detect.); NG PCR NOT DETECTED (Not Detect.)
[2023-07-13 15:41] LABS: BV Int Neg Control Negative (Negative); BV Int Pos Control Positive (Positive)
== END 2023-07-12 09:05 | disposition home or self-care (01) ==
LOC: HO.LNP 09:04
PROVIDERS: Visit Provider Obstetrics & Gynecology
DX: N76.0 Acute vaginitis (principal)
CPT/HCPCS: 0353U; 87480; 87510; 87660

== ENCOUNTER 2023-08-22 11:00 | Outpatient (REF) | payer OTHER, SELFPAY ==
[2023-08-23 15:06] LABS: BV Int Neg Control Negative (Negative); BV Int Pos Control Positive (Positive)
[2023-08-23 15:35] LABS: CT PCR NOT DETECTED (Not Detect.); NG PCR NOT DETECTED (Not Detect.)
== END 2023-08-22 11:01 | disposition home or self-care (01) ==
LOC: HO.LAB 11:00
PROVIDERS: PCP Nurse Practitioner Family; Visit Provider Advanced Practice Midwife
DX: N89.8 Other specified noninflammatory disorders of vagina (principal); Z20.2 Contact with and (suspected) exposure to infections with a predominantly sexual mode of transmission
CPT/HCPCS: 0353U; 81025; 87480; 87510; 87660; 99212

== ENCOUNTER 2023-08-22 11:00 | Outpatient (AMB) | payer OTHER, SELFPAY ==
[2023-08-22 11:30] VITALS: BP 116/64; BMI 21.1
--- NOTE | 2023-08-22 11:30 | MHC.OFFVIS ---
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 Present Allergies amoxicillin Allergy (Unknown, Uncoded 08/22/23 11:31) hives Medication List - Last Reconciled 08/22/23 by Kiara Rosado CNM albuterol sulfate 90 mcg/actuation 2 puffs inhalation Q4-6H PRN cetirizine (All Day Allergy (cetirizine)) 10 mg PO DAILY fluticasone propionate 50 mcg/actuation (Flonase Allergy Relief) 1 spray intranasal DAILY PRN ibuprofen 600 mg PO Q8H PRN Is last menstrual period known: Yes Last menstrual period: 07/05/23 Do you need a note to return to daycare/school/sports/work: No HPI HPI AUB: Details: Patient is scheduled as a visit for AUB this visit got scheduled just this morning. She has just stopped Depo-Provera and she has been spotting often on and she is curious about why that is happening she is open to and is not using any kind of protection last time she had sex was 4 days ago she has BV show up frequently and she use boric acid two mornings or nights ago. But she had vaginal itching that made her really want to scratch and she has long acrylic fake nails. She said it was uncomfortable when she had sex. [facility] Medical History History of migraine headaches Asthma, mild intermittent Allergic rhinitis Surgical History No pertinent past surgical history Family History Mother No problems noted. 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 Current occupational exposures/hazards: No Sexual orientation: Straight/Heterosexual Gender identity: Female Cognitive needs: No Hearing needs: No Vision needs: No Female Reproductive History Menstrual Age of Menarche: 14 Date of last menstrual period: 07/05/23 control method: none Date of last pap smear: 01/31/23 (negative) History of abnormal pap smear: No Physical Exam Vital Signs: Last Vital Signs BP 116/64 08/22/23 11:30 BMI result Body Mass Index 21.1 Other: Her vulva appears pink and clear not inflamed with no abnormal discharge whatsoever and there was no blood in the vault her nulliparous cervix is pink smooth healthy appearing. We will await the results of testing she is on the portal discussed that at most might be mild yeast or BV discussed that condoms can protect against recurrent BV and also that irregular bleeding is just to be expected when somebody is getting off Depo-Provera discussed how been she is to and she is I recommend she take a multivitamin every day that would have folic acid. External Female Exam: normal external appearance and normal appearance of the urethra Speculum Exam - Vagina: normal appearance of the vagina and normal vaginal discharge Speculum Exam - Cervix: normal appearance of the cervix and Cervical os closed Results AMB Test Urine AMB Test Urine Negative Last Edit by Reginaldo Poe CMA on 08/22/23 11:44 Results Reviewed Results Reviewed: Laboratory Last Values Tst Clinic Negative 08/22/23 11:42 Assessment & Plan Assessment & Plan (1) Depo-Provera contraceptive status: Comment: Last dose 01/26/2023 next dose 04/20/23; has stopped Depo now and bleeds irregularly explained that this is normal. Code(s): Z30.42 - Encounter for surveillance of injectable contraceptive Category: Social Hx (2) Vaginal itching: Comment: Await test results recommend gentle vagina care, cleanse with water only Code(s): N89.8 - Other specified noninflammatory disorders of vagina Category: Medical Plan Her vulva appears pink and clear not inflamed with no abnormal discharge whatsoever and there was no blood in the vault her nulliparous cervix is pink smooth healthy appearing. We will await the results of testing she is on the portal discussed that at most might be mild yeast or BV discussed that condoms can protect against recurrent BV and also that irregular bleeding is just to be expected when somebody is getting off Depo-Provera discussed how been she is to and she is I recommend she take a multivitamin every day that would have folic acid. Orders: Orders AMB HCG Urine Test Today Z32.02 - Encounter for test, result negative Coding Level of Care Code Est Pt Level 3 (73265) Diagnoses Depo-Provera contraceptive status Z30.42 Vaginal itching N89.8
== END 2023-08-22 12:17 | disposition home or self-care (01) ==
PROVIDERS: PCP Nurse Practitioner Family; Visit Provider Advanced Practice Midwife
DX: Z30.42 Encounter for surveillance of injectable contraceptive (principal); N89.8 Other specified noninflammatory disorders of vagina; Z32.02 Encounter for pregnancy test, result negative
CPT/HCPCS: 99213

== ENCOUNTER 2023-09-08 11:23 | Outpatient (AMB) | payer OTHER, SELFPAY ==
[2023-09-08 11:31] VITALS: BP 110/62; BMI 22.0
--- NOTE | 2023-09-08 11:31 | MHC.OFFVIS ---
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 She has no longer on Depo-Provera she stopped it she is due for the restart in beginning of August and decided to be off of it for a while she is having sex she says she has been told that condoms for the new way the absolutely prevent BV from come back again again again. [facility] Medical History History of migraine headaches Asthma, mild intermittent Allergic rhinitis Surgical History No pertinent past surgical history Family History Mother No problems noted. 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 Current occupational exposures/hazards: No Sexual orientation: Straight/Heterosexual Gender identity: Female Cognitive needs: No Hearing needs: No Vision needs: No Female Reproductive History Menstrual Age of Menarche: 14 Date of last menstrual period: 08/25/23 Total pregnancies: 0 Date of last pap smear: 02/01/24 (neg.) History of abnormal pap smear: No Physical Exam Vital Signs: Last Vital Signs BP 110/62 09/08/23 11:31 BMI result Body Mass Index 22.0 Other: External vulva no lesions no erythema at all no abnormal discharge vagina moist healthy appearing there has a slight white curdy discharge but it is extremely is slight and more consistent with luteal phase than anything else. treat as yeast External Female Exam: normal external appearance and normal appearance of the urethra Speculum Exam - Vagina: normal appearance of the vagina and normal vaginal discharge Speculum Exam - Cervix: normal appearance of the cervix and Cervical os closed Assessment & Plan Assessment & Plan (1) Vaginal itching: Comment: Await test results, appears like very very mild yeast no vaginal or labial erythema visible. We will treat with Monistat I reviewed that she can treat for a few days and then stopped treatment if she is fine safer sex and condoms reviewed again. I highly recommend refraining from constantly treating for either BV with what ever treatment is under consideration. Gentle over skin care discussed. Code(s): N89.8 - Other specified noninflammatory disorders of vagina Category: Medical Plan As above patient has been seen frequently for various complaints of discharge and itching. She has treated with various regimens. She is currently not contraceptive thing open ' if it happens it happens ?. Review that the only way to released prevent recurrence of BV if it happens every time she is sexually active is to use condoms. In this case it appears like very very mild yeast that has not even caused any erythema. Discussed paying attention to her detergent as well because she says the 1st time she wears close after the coming out of the wash she finds herself itchy consider hypoallergenic detergent. I am prescribing Monistat cream for 7 days but since she an extremely mild case she might for 1 or 2 nights can save the rest for the future. Discussed having an overall philosophy of of less is better. Medications: New miconazole nitrate 2% (Miconazole-7) Use when needed for clear evidence of yeast infection 1 appful vaginal BEDTIME 7 days 45 grams 2RF Coding Level of Care Code Est Pt Level 3 (97226) Diagnoses Vaginal itching N89.8
== END 2023-09-08 13:00 | disposition home or self-care (01) ==
PROVIDERS: PCP Nurse Practitioner Family; Visit Provider Advanced Practice Midwife
DX: N89.8 Other specified noninflammatory disorders of vagina (principal)
CPT/HCPCS: 99213

== ENCOUNTER 2023-09-08 11:23 | Outpatient (REF) | payer OTHER, SELFPAY ==
[2023-09-09 03:51] LABS: CT PCR NOT DETECTED (Not Detect.); NG PCR NOT DETECTED (Not Detect.)
[2023-09-09 09:27] LABS: Bacterial Vaginosis PCR NEGATIVE (Negative); Candida Group PCR DETECTED (Not Detect); Candida glab krusei PCR NOT DETECTED (Not Detect); Trichomonas vaginalis PCR NOT DETECTED (Not Detect)
== END 2023-09-08 11:24 | disposition home or self-care (01) ==
LOC: HO.LAB 11:23
PROVIDERS: PCP Nurse Practitioner Family; Visit Provider Advanced Practice Midwife
DX: Z01.419 Encounter for gynecological examination (general) (routine) without abnormal findings (principal); N89.8 Other specified noninflammatory disorders of vagina
CPT/HCPCS: 0352U; 0353U; 99212

== ENCOUNTER 2023-09-08 17:05 | Outpatient (AMB) | payer OTHER, SELFPAY ==
[2023-09-08 17:09] VITALS: BP 103/58; PULSE 68; TEMP 36.6; O2SAT 97; BMI 21.9
--- NOTE | 2023-09-08 17:09 | MHC.PC.OV ---
Vital Signs 09/08/23 17:09 Height 5 ft 3 in Weight 123 lb 8 oz BMI 21.9 BP 103/58 L Blood Pressure Location Lt brachial Pulse 68 Pulse Source Pulse Oximeter Temp 97.9 F Temp Source Temporal Artery Scan Pulse Oximetry (%) 97 Oxygen Delivery Method Room Air Intake Visit Reasons: rash on the back of the head Intake Note: Patient is here with rash in back of head for 2 months, is itchy, and feels as if there is a little bump on the back of her head. Allergies amoxicillin Allergy (Unknown, Uncoded 09/08/23 17:18) hives Medication List - Last Reconciled 09/08/23 by Ashley Leal CNP albuterol sulfate 90 mcg/actuation 2 puffs inhalation Q4-6H PRN cetirizine (All Day Allergy (cetirizine)) 10 mg PO DAILY fluticasone propionate 50 mcg/actuation (Flonase Allergy Relief) 1 spray intranasal DAILY PRN ibuprofen 600 mg PO Q8H PRN miconazole nitrate 2% (Miconazole-7) 1 appful vaginal BEDTIME 7 days Tobacco use date assessed: 09/08/23 Dental Screening Dental Screen Date: 09/08/23 HPI HPI Comments History of Present Illness Details 23-year-old female presents with complaints of rash to the back of her head. She notes that the rash is itchy and has been present for the past 2 months. She has been using A&D ointment with improvement. She notes that the rash is significantly improved. She brought a photo before the rash improved (large, red, raised patch noted to the posterior neck). She notes that she stopped taking sertraline. She reports controlled anxiety and depression symptoms [facility] Medical History History of migraine headaches Asthma, mild intermittent Allergic rhinitis Surgical History No pertinent past surgical history Family History Mother No problems noted. 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 Martin Vu, Renae Mc, Cesar Yang and colleagues, with an educational miriam from [employer]. Review of Systems Const Details: Const Denies chills, Denies fatigue, Denies fever(s), Denies headache(s) and Denies weakness ENT Denies dizziness and Denies headache(s) Card Denies chest pain, Denies lightheadedness, Denies dyspnea and Denies other (Palpitations) Resp Denies cough, Denies dyspnea, Denies wheezing and Denies other ( shortness of breath) GI Denies abdominal pain, Denies melena, Denies hematochezia, Denies change in bowel habits, Denies dyspepsia and Denies nausea Denies hematuria and Denies dysuria Musc Denies abnormal gait, Denies myalgias, Denies arthralgias, Denies numbness and Denies tingling Skin/Breast Reports rash, Denies unusual bruising and Denies wounds Neuro Denies abnormal gait, Denies dizziness, Denies headache(s), Denies memory loss, Denies numbness, Denies Sensory deficit (Neuro), Denies tingling and Denies weakness Psych Denies anxiety, Denies depression, Denies memory loss Endo Denies cold intolerance, Denies fatigue, Denies heat intolerance, Denies polydipsia and Denies polyuria Aller/Immun Denies wheezing Physical exam (Primary Care) Vital Signs: Last Vital Signs Temp 97.9 F 09/08/23 17:09 Pulse 68 09/08/23 17:09 BP 103/58 L 09/08/23 17:09 Pulse Ox 97 09/08/23 17:09 Oxygen Delivery Method Room Air 09/08/23 17:09 BMI result Body Mass Index 21.9 Tobacco/Smoking Status: Tobacco use Status Tobacco use date assessed 09/08/23 09/08/23 17:14 Patient Tobacco Use Status Never used Tobacco 09/08/23 17:14 e-Cigarette/Vaping Use Never Used 09/08/23 17:14 Thrive Assessment: Date of Thrive Assessment Date Thrive assessed 11/23/22 09/08/23 17:14 Const Other: General: no acute distress and well developed Nutritional Appearance: well nourished Orientation/consciousness: patient oriented x3 HENMT Head: Yes normocephalic and Yes atraumatic Eyes General: appearance normal, both eyes and all related structures Pupils: Equal, round and reactive pupils present EOM: EOMs intact bilaterally Resp Effort & Inspection: normal respiratory effort Auscultation: clear to auscultation bilaterally Cardio Rate: regular rate Rhythm: regular rhythm Heart sounds: S1 normal heart sound present, S2 normal heart sound present, no gallops, no murmurs and no rubs GI Palpation (GI): No Abdominal aortic bruit present, Soft to palpation, nontender, No hepatosplenomegaly present and No Rebound tenderness present Auscultation: normal bowel sounds General: Yes no CVA tenderness Back/Spine/Pelvis Back: no CVA tenderness Cervical Spine: cervical ROM normal and No Cervical spine tenderness Thoracic/Lumbar Spine: thoraco-lumbar ROM normal, No pain with thoraco-lumbar ROM, No thoracic spinal tenderness and No lumbar spinal tenderness Extrem General: Yes normal to inspection, No edema and No calf tenderness Skin General: warm and dry. Normal skin color. Normal skin turgor Lesions: no lesions Rashes: Light, flat, light brown patch noted to posterior neck, likely resolving fungal infection compared to rash on old photo (large, red, raised patch) Trauma: no lacerations or abrasions Wounds: no wounds Nails: normal Neuro General: patient oriented x3, gait normal and no focal neuro deficit Cranial nerves: Yes Equal, round and reactive pupils present Cognition (Neuro): normal cognition Gait exam (Neuro): Normal gait present Sensory Exam: No Sensory deficit (Neuro) Psych Appearance: grossly normal Affect: normal affect Attitude: cooperative Thought process: Normal thought process present Assessment and Plan Assessment & Plan (1) Rash: Code(s): R21 - Rash and other nonspecific skin eruption Plan: Itchy rash to posterior neck x2 months; improving Light, flat, light brown patch noted to posterior neck, likely resolving fungal infection compared to rash on old photo (large, red, raised patch) Advised to trial OTC clotrimazole twice daily as needed Advised to get routine fasting blood work done before his next visit Follow-up for an extended physical exam in March 2024 or return sooner with worsening or new signs and symptoms Verbalized understanding and agreed with the treatment plan (2) Laboratory tests ordered as part of a complete physical exam (CPE): Code(s): Z. - Encounter for general adult medical examination without abnormal findings Plan: Fasting labs ordered in preparation of a complete physical exam. Advised to fast for at least 10 hours before getting labs drawn. May drink water Verbalized understanding and agreed with treatment plan. Orders: Orders Comprehensive Lorman. Panel Fast 7 Months Z. - Encounter for general adult medical examination without abnormal findings Lipid Panel 7 Months Z. - Encounter for general adult medical examination without abnormal findings TSH reflex Free T4 7 Months Z. - Encounter for general adult medical examination without abnormal findings Complete Blood Count Auto Diff 7 Months Z. - Encounter for general adult medical examination without abnormal findings UA CC w/rflx Micro + Cult 7 Months Z00.00 - Encounter for general adult medical examination without abnormal findings Coding Level of Care Code Est Pt Level 3 (52430) Diagnoses Rash R21 Laboratory tests ordered as part of a complete physical exam (CPE) Z.
== END 2023-09-08 17:36 | disposition home or self-care (01) ==
PROVIDERS: PCP Nurse Practitioner Family; Visit Provider Nurse Practitioner Family
DX: R21 Rash and other nonspecific skin eruption (principal)
CPT/HCPCS: 99213

== ENCOUNTER 2023-12-26 13:40 | Outpatient (AMB) | payer OTHER, SELFPAY ==
--- NOTE | 2023-12-26 13:51 | MHC.PC.OV ---
Vital Signs 12/26/23 14:01 Height 5 ft 3 in Weight 122 lb 6 oz BMI 21.7 BP 90/60 Blood Pressure Location Lt brachial Position Sitting Respiration 16 Pulse 77 Pulse Source Pulse Oximeter Temp 97.8 F Temp Source Tympanic Pulse Oximetry (%) 98 Oxygen Delivery Method Room Air Intake Visit Reasons: Breast issues Intake Note: breast tenderness Allergies amoxicillin Allergy (Unknown, Uncoded 12/26/23 14:10) hives Medication List - Last Reconciled 12/26/23 by Ashley Leal CNP albuterol sulfate 90 mcg/actuation 2 puffs inhalation Q4-6H PRN cetirizine (All Day Allergy (cetirizine)) 10 mg PO DAILY fluticasone propionate 50 mcg/actuation (Flonase Allergy Relief) 1 spray intranasal DAILY PRN ibuprofen 600 mg PO Q8H PRN miconazole nitrate 2% (Miconazole-7) 1 appful vaginal BEDTIME 7 days Tobacco use date assessed: 09/08/23 Dental Screening Dental Screen Date: 09/08/23 HPI HPI Comments History of Present Illness Details 23-year-old female presents with complaints of a lump in each breast with tenderness to palpation. She notes that she feels the lump in the middle of her left breast and right side of her right breast. She has been experiencing these signs and symptoms for the past one month; unchanged during during her menstrual cycles which have been regular. She stopped taking oral contraceptives about 3 months ago. She denies nipples discharge. [facility] Medical History History of migraine headaches Asthma, mild intermittent Allergic rhinitis Surgical History No pertinent past surgical history Family History Mother No problems noted. Social History Household Members: Family Housing: House Alcohol intake: current Alcohol intake frequency: a few times a month Alcohol type: other Patient Tobacco Use Status: Never used Tobacco e-Cigarette/Vaping Use: Never Used Substance Use Type: Marijuana service: No Current occupational status: employed Current occupation: [employer] Current occupational exposures/hazards: No Sexual orientation: Straight/Heterosexual Gender identity: Female Cognitive needs: No Hearing needs: No Vision needs: No Female Reproductive History Menstrual Age of Menarche: 14 Questionnaire Thrive Questionnaire Date Thrive assessed: 11/23/22 IVONNE-7 AMB Questionnaire IVONNE-7 Date IVONNE - 7 assessed: 11/23/22 Source: Developed by Drs. Martin Vu, Renae Mc, Cesar Yang and colleagues, with an educational miriam from [employer]. Review of Systems Const Details: Const Denies chills, Denies fatigue, Denies fever(s), Denies headache(s) and Denies weakness ENT Denies dizziness and Denies headache(s) Card Denies chest pain, Denies lightheadedness, Denies dyspnea and Denies other (Palpitations) Resp Denies cough, Denies dyspnea, Denies wheezing and Denies other ( shortness of breath) GI Denies abdominal pain, Denies melena, Denies hematochezia, Denies change in bowel habits, Denies dyspepsia and Denies nausea Denies hematuria and Denies dysuria Musc Denies abnormal gait, Denies myalgias, Denies arthralgias, Denies numbness and Denies tingling Skin/Breast Denies rash, Denies unusual bruising and Denies wounds Neuro Denies abnormal gait, Denies dizziness, Denies headache(s), Denies memory loss, Denies numbness, Denies Sensory deficit (Neuro), Denies tingling and Denies weakness Psych Denies anxiety, Denies depression, Denies memory loss Endo Denies cold intolerance, Denies fatigue, Denies heat intolerance, Denies polydipsia and Denies polyuria Aller/Immun Denies wheezing Physical exam (Primary Care) Vital Signs: Last Vital Signs Temp 97.8 F 12/26/23 14:01 Pulse 77 12/26/23 14:01 Resp 16 12/26/23 14:01 BP 90/60 12/26/23 14:01 Pulse Ox 98 12/26/23 14:01 Oxygen Delivery Method Room Air 12/26/23 14:01 BMI result Body Mass Index 21.7 Tobacco/Smoking Status: Tobacco use Status Tobacco use date assessed 09/08/23 12/26/23 13:51 Patient Tobacco Use Status Never used Tobacco 12/26/23 13:51 e-Cigarette/Vaping Use Never Used 12/26/23 13:51 Thrive Assessment: Date of Thrive Assessment Date Thrive assessed 11/23/22 12/26/23 13:51 Const Other: General: no acute distress and well developed Nutritional Appearance: well nourished Orientation/consciousness: patient oriented x3 [facility] Head: Yes normocephalic and Yes atraumatic Eyes General: appearance normal, both eyes and all related structures Pupils: Equal, round and reactive pupils present EOM: EOMs intact bilaterally Resp Effort & Inspection: normal respiratory effort Auscultation: clear to auscultation bilaterally Cardio Rate: regular rate Rhythm: regular rhythm Heart sounds: S1 normal heart sound present, S2 normal heart sound present, no gallops, no murmurs and no rubs GI Palpation (GI): No Abdominal aortic bruit present, Soft to palpation, nontender, No hepatosplenomegaly present and No Rebound tenderness present Auscultation: normal bowel sounds General: Yes no CVA tenderness Back/Spine/Pelvis Back: no CVA tenderness Cervical Spine: cervical ROM normal and No Cervical spine tenderness Thoracic/Lumbar Spine: thoraco-lumbar ROM normal, No pain with thoraco-lumbar ROM, No thoracic spinal tenderness and No lumbar spinal tenderness Extrem General: Yes normal to inspection, No edema and No calf tenderness Skin General: warm and dry. Normal skin color. Normal skin turgor Lesions: no lesions Rashes: no rashes Trauma: no lacerations or abrasions Wounds: no wounds Nails: normal Neuro General: patient oriented x3, gait normal and no focal neuro deficit Cranial nerves: Yes Equal, round and reactive pupils present Cognition (Neuro): normal cognition Gait exam (Neuro): Normal gait present Sensory Exam: No Sensory deficit (Neuro) Psych Appearance: grossly normal Affect: normal affect Attitude: cooperative Thought process: Normal thought process present Results AMB Test Urine AMB Test Urine Negative Last Edit by Jaiden Domínguez on 12/26/23 14:25 Assessment and Plan Assessment & Plan (1) Breast tenderness: Code(s): N64.4 - Mastodynia Plan: She reports tender lumps to each breast with palpation for the past 1 month. She stopped taking oral contraceptives a month ago. Her menstrual cycles have been regular Normal bilateral breast exam with potato chip sorter present Urine hCG is negative Likely hormonal changes Encouraged to monitor her symptoms and follow-up with worsening or new symptoms Verbalized understanding and agreed with the treatment plan Orders: Orders AMB HCG Urine Test Today N64.4 - Mastodynia Coding Level of Care Code Est Pt Level 4 (39727) Diagnoses Breast tenderness N64.4
[2023-12-26 14:01] VITALS: BP 90/60; PULSE 77; RESP 16; TEMP 36.6; O2SAT 98; BMI 21.7
== END 2023-12-26 14:33 | disposition home or self-care (01) ==
PROVIDERS: PCP Nurse Practitioner Family; Visit Provider Nurse Practitioner Family
DX: N64.4 Mastodynia (principal); Z32.02 Encounter for pregnancy test, result negative
CPT/HCPCS: 81025; 99214

== ENCOUNTER 2024-02-21 15:13 | Outpatient (AMB) | payer OTHER, SELFPAY ==
--- NOTE | 2024-02-21 15:24 | A.OFFPC_ITS ---
Vital Signs 02/21/24 15:28 Height 5 ft 3 in Weight 117 lb BMI 20.7 BP 92/52 L Blood Pressure Location Lt brachial Position Sitting Pulse 89 Pulse Source Pulse Oximeter Temp 98.4 F Temp Source Oral Pulse Oximetry (%) 99 Oxygen Delivery Method Room Air Intake Visit Reasons: Asthma (pedi) Intake Note: Asthma. Requesting albuterol for the nebulizer. Allergies amoxicillin Allergy (Unknown, Uncoded 02/21/24 15:42) hives Medication List - Last Reconciled 02/21/24 by Ashley Leal CNP albuterol sulfate 90 mcg/actuation 2 puffs inhalation Q4-6H PRN cetirizine (All Day Allergy (cetirizine)) 10 mg PO DAILY fluticasone propionate 50 mcg/actuation (Flonase Allergy Relief) 1 spray intranasal DAILY PRN ibuprofen 600 mg PO Q8H PRN Tobacco use date assessed: 09/08/23 Dental Screening Dental Screen Date: 09/08/23 HPI HPI Comments History of Present Illness Details 24-year-old female presents with complai nts of intermittent productive cough with brown sputum for the past 1 month. She notes initial fever that completely resolved. She has been using albuterol inhaler as needed. However, she uses her son's albuterol nebulizer with significant improvement. Her son has been sick on and off with croup. No dyspnea or chest pain. No constitutional symptoms. She take cetirizine as needed instead of daily as prescribed. [facility] Medical History History of migraine headaches Asthma, mild intermittent Allergic rhinitis Surgical History No pertinent past surgical history Family History Mother No problems noted. 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 2. Feeling down, depressed, or hopeless: not at all 3. Trouble falling or staying asleep, or sleeping too much: more than half the days 4. Feeling tired or having little energy: not at all 5. Poor appetite or overeating: not at all 6. Feeling bad about yourself - or that you are a failure or have let yourself or your family down: not at all 7. Trouble concentrating on things, such as reading the newspaper or watching television: not at all 8. Moving or speaking so slowly that other people could have noticed. Or the opposite - being so fidgety or restless that you have been moving around a lot more than usual: not at all 9. Thoughts that you would be better off or of hurting yourself in some way: not at all Source: Developed by Drs. Martin Vu, Renae Mc, Cesar Yang and colleagues, with an educational miriam from [employer]. Thrive Questionnaire Date Thrive assessed: 11/23/22 I am a: Patient What is your living situation today?: I have a steady place to live Within the past 12 months, did the food you bought not last and you didn't have the money to get more?: Never true Within the past 12 months, did you worry whether your food would run out before you got money to buy more?: Never true Do you have trouble paying for medicines?: No Do you have trouble getting transportation to medical appointments?: No Do you have trouble paying your heating and electricity bill?: No Do you have trouble taking care of your child, family member or friend?: No Do you have trouble with day-to-day activities such as bathing, preparing meals, shopping, managing finances, etc.?: No Are you currently unemployed and looking for a job?: No Are you interested in more education?: Yes Please select the resources that you would like help with: Education Currently or been in a relationship where the following occur: No concerns reported THRIVE Score: 0 AUDIT C Alcohol Use Questionnaire (AUDIT-C) 1. How often do you have a drink containing alcohol?: Never Total Score: 0 IVONNE-7 AMB Questionnaire IVONNE-7 Date IVONNE - 7 assessed: 11/23/22 Feeling nervous, anxious, or on edge: 0 = Not at all Not being able to stop or control worryin = Not at all Worrying too much about different things: 0 = Not at all Trouble relaxin = Not at all Being so restless that it is hard to sit still: 0 = Not at all Becoming easily annoyed or irritable: 0 = Not at all Feeling afraid as if something awful might happen: 0 = Not at all Total IVONNE-7 score (0-4 normal; 5-9 mild; 10-14 moderate; 15-21 severe): 0 Source: Developed by Drs. Martin Vu, Renae Mc, Cesar Yang and colleagues, with an educational miriam from [employer]. ACT Questionnaire In the past 4 weeks, how much of the time did your asthma keep you from getting as much done at work, school or at home?: Some of the time During the past 4 weeks, how often have you had shortness of breath?: More than once a day During the past 4 weeks, how often did your asthma symptoms wake you up at night or earlier than usual in the morning?: 4 or more nights a week During the past 4 weeks, how often have you had to use your rescue inhaler or nebulizer medication?: More than 3 times per day How would you rate your asthma control during the past 4 weeks?: Somewhat controlled ACT Interpretation: Positive Score: 9 Review of Systems Const Details: Const Denies chills, Denies fatigue, Denies fever(s), Denies headache(s) and Denies weakness ENT Denies dizziness and Denies headache(s) Card Denies chest pain, Denies lightheadedness, Denies dyspnea and Denies other (Palpitations) Resp Reports cough, Denies dyspnea, Denies wheezing and Denies other ( shortness of breath) GI Denies abdominal pain, Denies melena, Denies hematochezia, Denies change in bowel habits, Denies dyspepsia and Denies nausea Denies hematuria and Denies dysuria Musc Denies abnormal gait, Denies myalgias, Denies arthralgias, Denies numbness and Denies tingling Skin/Breast Denies rash, Denies unusual bruising and Denies wounds Neuro Denies abnormal gait, Denies dizziness, Denies headache(s), Denies memory loss, Denies numbness, Denies Sensory deficit (Neuro), Denies tingling and Denies weakness Psych Denies anxiety, Denies depression, Denies memory loss Endo Denies cold intolerance, Denies fatigue, Denies heat intolerance, Denies polydipsia and Denies polyuria Aller/Immun Denies wheezing Physical exam (Primary Care) Vital Signs: Last Vital Signs Temp 98.4 F 02/21/24 15:28 Pulse 89 02/21/24 15:28 BP 92/52 L 02/21/24 15:28 Pulse Ox 99 02/21/24 15:28 Oxygen Delivery Method Room Air 02/21/24 15:28 BMI result Body Mass Index 20.7 Tobacco/Smoking Status: Tobacco use Status Tobacco use date assessed 09/08/23 02/21/24 15:30 Patient Tobacco Use Status Never used Tobacco 02/21/24 15:30 e-Cigarette/Vaping Use Never Used 02/21/24 15:30 Thrive Assessment: Date of Thrive Assessment Date Thrive assessed 11/23/22 02/21/24 15:30 Currently or been in a relationship where the following occur: No concerns reported Const Other: General: no acute distress and well developed Nutritional Appearance: well nourished Orientation/consciousness: patient oriented x3 HENMT Head is normocephalic Bilateral ear canal and TM are normal Nasal turbinates and oropharynx are pink and moist Sinuses are nontender with palpation No auricular or cervical lymphadenopathy Eyes General: appearance normal, both eyes and all related structures Pupils: Equal, round and reactive pupils present EOM: EOMs intact bilaterally Resp Effort & Inspection: normal respiratory effort Auscultation: clear to auscultation bilaterally Cardio Rate: regular rate Rhythm: regular rhythm Heart sounds: S1 normal heart sound present, S2 normal heart sound present, no gallops, no murmurs and no rubs GI Palpation (GI): No Abdominal aortic bruit present, Soft to palpation, nontender, No hepatosplenomegaly present and No Rebound tenderness present Auscultation: normal bowel sounds General: Yes no CVA tenderness Back/Spine/Pelvis Back: no CVA tenderness Cervical Spine: cervical ROM normal and No Cervical spine tenderness Thoracic/Lumbar Spine: thoraco-lumbar ROM normal, No pain with thoraco-lumbar ROM, No thoracic spinal tenderness and No lumbar spinal tenderness Extrem General: Yes normal to inspection, No edema and No calf tenderness Skin General: warm and dry. Normal skin color. Normal skin turgor Neuro General: patient oriented x3, gait normal and no focal neuro deficit Cranial nerves: Yes Equal, round and reactive pupils present Cognition (Neuro): normal cognition Gait exam (Neuro): Normal gait present Sensory Exam: No Sensory deficit (Neuro) Psych Appearance: grossly normal Affect: normal affect Attitude: cooperative Thought process: Normal thought process present Coding Level of Care Code Est Pt Level 4 (64009) Diagnoses Asthma, mild intermittent J45.20 Viral upper respiratory illness J06.9 Additional Codes Asthma Control Questionnaire - ACT Interpretation: Positive ([id number]) Assessment & Plan Assessment & Plan (1) Asthma, mild intermittent: Code(s): J45.20 - Mild intermittent asthma, uncomplicated Category: Medical Plan: Reports intermittent productive cough with brown sputum x1 month. She uses her albuterol inhaler as prescribed. However, her son's albuterol via nebulizer provides significant relief. She takes cetirizine as needed instead of daily as prescribed. ACT score revealed poorly control asthma. Lung sounds clear and equal bilaterally. Upper respiratory viral infection or allergies are likely. Encouraged to take cetirizine 10 mg daily and albuterol inhaler as prescribed. Albuterol via nebulizer prescribed Q4-6H as needed; advised to use as prescribed. Nasal swab collected and will be tested for COVID/flu/RSV. Encouraged to follow-up as planned for an extended physical exam or sooner with worsening or new symptoms. Verbalized understanding and agreed with the treatment plan. (2) Viral upper respiratory illness: Code(s): J06.9 - Acute upper respiratory infection, unspecified Category: Medical Plan: Plan as above Orders: Orders SARS-CoV2/FLU/RSV Today J06.9 - Acute upper respiratory infection, unspecified Medications: New albuterol sulfate 2.5 mg (3 mL) inhalation Q4-6H PRN 90 mL 3RF shortness of breath or wheezing compressor, for nebulizer As directed 1 ea 0RF Refilled albuterol sulfate 90 mcg/actuation 2 puffs inhalation Q4-6H PRN 1 ea 1RF shortness of breath or wheezing J45.20 - Mild intermittent asthma, uncomplicated
[2024-02-21 15:28] VITALS: BP 92/52; PULSE 89; TEMP 36.9; O2SAT 99; BMI 20.7
== END 2024-02-21 15:52 | disposition home or self-care (01) ==
LOC: HO.HMCFM 15:13
PROVIDERS: PCP Nurse Practitioner Family; Visit Provider Nurse Practitioner Family
DX: J45.20 Mild intermittent asthma, uncomplicated (principal); J06.9 Acute upper respiratory infection, unspecified

== ENCOUNTER 2024-02-21 15:13 | Outpatient (REF) | payer OTHER, SELFPAY ==
[2024-02-21 19:50] LABS: Influenza A PCR NEGATIVE (Negative); Influenza B PCR NEGATIVE (Negative); Resp Syncy Virus RNA Qual PCR NEGATIVE (Negative); SARS COV2 PCR INHOUSE NEGATIVE (Negative)
== END 2024-02-21 15:14 | disposition home or self-care (01) ==
LOC: HO.LNP 15:13
PROVIDERS: PCP Nurse Practitioner Family; Visit Provider Nurse Practitioner Family
DX: J06.9 Acute upper respiratory infection, unspecified (principal); J45.20 Mild intermittent asthma, uncomplicated
CPT/HCPCS: 0241U; 96160; 99212

== ENCOUNTER → 2024-09-06 07:44 | Outpatient (BNVA) | payer OTHER, SELFPAY | PROVIDERS: PCP Nurse Practitioner Family; Visit Provider Nurse Practitioner Family | DX: Z13.89 Encounter for screening for other disorder (principal) ==